=== PATIENT | female | born 1950 ===

== ENCOUNTER → 2017-02-20 | Outpatient (CLI) | payer OTHER, MEDICARE ==
--- NOTE | 2017-02-20 10:51 | DIAGNOSTIC IMAGING REPORT ---
LEFT SHOULDER 3 VIEWS CLINICAL HISTORY: Left shoulder pain. FINDINGS: 3 views of left shoulder are obtained. No prior studies are available for comparison at the time of dictation. The skeletal structures appear osteopenic. No fracture or dislocation is identified. Mild productive degenerative change is seen at the acromio clavicle joint. The glenohumeral articulation is preserved. The overlying soft tissues are within normal limits. Imaged left upper lobe lung parenchyma appears clear. IMPRESSION: No acute bony abnormality is seen in the left shoulder. Electronically signed by: Ismael Knox M.D. 02/20/2017 10:50 AM Dictated Date/Time: 02/20/2017 10:49 AM
== END | disposition home or self-care (01) ==
LOC: C.RDSM 10:26
PROVIDERS: ATTEND Family Medicine
DX: M25.512 Pain in left shoulder (principal)